=== PATIENT | female | born 1975 ===

== ENCOUNTER 2021-09-20 15:02 | Emergency (ER) | payer BC, SELFPAY ==
[2021-09-20 15:13] VITALS: BP 125/55; PULSE 58; RESP 16; TEMP 36.7; O2SAT 99
--- NOTE | 2021-09-20 15:15 | DI.CT_ITS ---
Exam(s) CT HEAD WO EXAM: CT HEAD WO CLINICAL HISTORY: s/p fall, head injury, r/o fx/bleed. TECHNIQUE: Imaging Protocol: Axial computed tomography images with coronal and sagittal reformatted images were created and reviewed COMPARISON: No exams were available for comparison FINDINGS: There are no skull fractures nor fluid in the visualized paranasal sinuses. Mild mucosal thickening is noted in the partially visualized right maxillary sinus. There is no evidence of intracranial hemorrhage, mass effect, or shift of midline structures. There are no extra-axial fluid collections. The ventricles are not enlarged or shifted and there is no blo od within the ventricular system nor within the basal cisterns. IMPRESSION: No acute intracranial findings on this noninfused CT scan of the brain. Report called to ER provider. RADIATION DOSE DELIVERED: 757.03mGy.cm Total DLP DATA REPOSITORY: All CT scans at this facility are submitted to the National Radiology Data Registry (NRDR) Dose Index Registry (DIR) with the [employer] ([employer]). RADIATION OPTIMIZATION: All CT scans at this facility use at least one of these dose optimization te chniques: automated exposure control; mA and/or kV adjustment per patient size (includes targeted exa ms where dose is matched to clinical indication); or iterative reconstruction.
--- NOTE | 2021-09-20 15:15 | DI.RAD_ITS ---
Exam(s) XR WRIST RT COMPLETE EXAM: XR WRIST RT COMPLETE CLINICAL HISTORY: fall on ice, r/o fx. TECHNIQUE: 2D digital imaging was performed. COMPARISON: No exams were available for comparison FINDINGS: There is a subtle nondisplaced fracture of the distal radius. Best seen on the lateral view. Ulnar styloid is intact as is the scaphoid. No significant ulnar variance. IMPRESSION: Subtle nondisplaced radial fracture DATA REPOSITORY: RADIATION DOSE DELIVERED:
--- NOTE | 2021-09-20 15:25 | ED.GENADUL_ITS ---
Discharge Plan Disposition Patient Disposition: HOME Condition: Stable Discharge Details Clinical Impression: Fracture of right wrist, Closed head injury Primary Care Provider: Unknown,Unknown ED Provider: Falguni Salas Home Meds and New Rx's Prescriptions: Continued warfarin 10 mg Tablet 10 mg PO DAILY 0RF Rx Instructions: 5-10mg Discharge Instructions Additional Instructions: Rest, ice, and elevate the affected area as much as possible. Take Tylenol as needed and directed for pain. Take the oxycodone for pain not relieved with tylenol. Call an orthopedist near home tomorrow to schedule a follow-up appointment for reevaluation within the next week. Follow-up with your primary care doctor as directed for recheck of your INR when indicated. Return immediately to the emergency department if you develop any worsening or new concerning symptoms. Discharge Data Discharge Date/Time-TO BE ENTERED AT DEPARTURE: 09/20/21 17:21 Discharge Physician: Falguni Salas Medical Decision Making 45-year-old female presents with right wrist pain after slip and fall on ice prior to arrival Patient does take warfarin for antiphospholipid syndrome and thinks she may have braced her fall with her wrist and does not thinks she directly hit her head on the ground but states her glasses did hit the ground. She denies LOC, vomiting, headache or neck pain. As the patient is not completely sure if her head had a direct hit, will obtain CT head imaging and she is agreeable. She has no focal deficits on exam. Her right dorsal lateral wrist is mild to moderately edematous with tenderness and limited range of motion due to pain. There is no obvious deformity. Will obtain right wrist x-ray and give a dose of tylenol. CT head negative. X-ray notes distal radius fracture. Volar splint and sling placed. Patient is visiting from [place] and returning in 2 days. She was given imaging disc and report. Advised to call local orthopedics for follow up within the next week. She states she had not checked her INR this week. INR obtained and 3.7. Advised to discuss her warfarin dosing and repeat INR check with her PCP. She was given a 4 tab bottle of oxycodone to go for breakthrough pain. Usual and customary return precautions given prior to discharge. Medical Records Medical records reviewed: Yes I reviewed the patient's medical records. Imaging Data Radiologic Study: Radiologist's impression: XR WRIST RT COMPLETE CLINICAL HISTORY: ? fall on ice, r/o fx. ? TECHNIQUE:? 2D digital imaging was performed. COMPARISON:? No exams were available for comparison FINDINGS: There is a subtle nondisplaced fracture of the distal radius.? Best seen on the lateral view.? Ulnar styloid is intact as is the scaphoid.? No significant ulnar variance. IMPRESSION: Subtle nondisplaced radial fracture CT HEAD WO CLINICAL HISTORY: ? s/p fall, head injury, r/o fx/bleed. ? TECHNIQUE:? Imaging Protocol: Axial computed tomography images with coronal and sagittal reformatted images were created and reviewed COMPARISON:? No exams were available for comparison FINDINGS: ?There are no skull fractures nor fluid in the visualized paranasal sinuses.? Mild mucosal thickening is noted in the partially visualized right maxillary sinus. There is no evidence of intracranial hemorrhage, mass effect, or shift of midline structures.? There are no extra-axial fluid collections.? The ventricles are not enlarged or shifted and there is no blood within the ventricular system nor within the basal cisterns. IMPRESSION: No acute intracranial findings on this noninfused CT scan of the brain. Lab Data Lab results reviewed: Yes I reviewed the patient's lab results. Labs: Laboratory Tests Range/Units 09/20/21 16:40 PT (9.3-11.0) sec 36.1 H INR (0.9-1.1) 3.7 H HPI General Date/Time Provider Initiated Documentation: 09/20/21 15:17 . Limitations to Documentation: no limitations . Information obtained by: patient . HPI Narrative: Patient is a 45-year-old female presents with right wrist pain after slip and fall on ice landing directly on her right wrist. Patient states she does not think she hit her head directly but did brace her fall with her wrist protecting her head and states her glasses did hit the ground. She states she was wearing a helmet and denies any damage to the helmet. She denies any headache, LOC, vomiting or neck pain. She denies any other injuries. She has not taken a medication for pain. Related Data Home Medications Medication Instructions Recorded Confirmed warfarin 10 mg tablet 10 mg PO DAILY 09/20/21 09/20/21 Allergies Allergy/AdvReac Type Severity Reaction Status Date / Time No Known Allergies Allergy Unverified 09/20/21 15:17 General Stated Complaint: Orthopedic FLOWER: 4 Review of Systems All systems reviewed & are unremarkable except as noted in HPI and below Constitutional Constitutional: Reports as per HPI, Denies chills and Denies fever(s) Eyes Eyes: Denies blurry vision ENT Ears, Nose, Mouth, and Throat: Denies dizziness, Denies sore throat and Denies throat swelling Cardiovascular Cardiovascular: Denies chest pain and Denies dyspnea Respiratory Respiratory: Denies cough and Denies dyspnea Gastrointestinal Gastrointestinal: Denies abdominal pain, Denies diarrhea and Denies vomiting Genitourinary Genitourinary: Denies hematuria and Denies dysuria Musculoskeletal Musculoskeletal: Denies back pain and Denies numbness Comments: R wrist pain Integumentary/Breasts Skin/Breast: Denies lesions and Denies rash Neurologic Neurologic: Denies dizziness, Denies localized weakness and Denies numbness Allergic/Immunologic Allergic/Immunologic: Denies throat swelling PFSH All Active Problems (Updated 09/20/21 @ 17:03 by Falguni Salas DO) Fracture of right wrist (Acute) Closed head injury (Acute) Medical History (Updated 09/20/21 @ 17:03 by Falguni Salas DO) Antiphospholipid syndrome Menometrorrhagia Surgical History (Updated 09/20/21 @ 17:03 by Falguni Salas DO) History of hysterectomy Social History Smoking/Tobacco Use Status: Never Smoking risk assessment performed?: Yes Substance use type: does not use Exam Const General: cooperative, healthy appearing and no acute distress Orientation: alert, awake and oriented x3 HENMT Head: normal to inspection, no palpable skull fracture and atraumatic Ears: hearing grossly normal bilaterally, external ears normal and TM's normal bilaterally General nose exam: external nose normal Face and sinus: normal facial exam Mouth: oral mucosae normal Eyes General: appearance normal, both eyes and all related structures Periorbital: periorbital findings normal Conjunctivae: conjunctivae normal Sclera: sclerae normal Pupils: PERRL EOM: EOM intact bilaterally Neck Neck: normal visual inspection Resp Effort & Inspection: normal respiratory effort and able to speak in complete sentences Cardio Rate: regular rate Back/Spine/Pelvis Cervical Spine: No cervical spinal tenderness Skin General skin exam: no rashes or lesions noted Neuro General: patient alert, patient awake, patient oriented x3, gait normal, moves all extremities and no meningeal signs Cranial Nerves: CN's II-XI intact bilaterally Motor: muscle tone normal throughout and strength 5/5 throughout Extrem Hand/finger images: 1. Tenderness, mild to moderate edema. Pain with flexion extension, pronation, supination. No tenderness or evidence of trauma to hand. No obvious deformity. Other: Right radial and ulnar pulse intact. No significant tenderness overlying right radial head or olecranon without evidence of trauma. No tenderness to palpation of right shoulder or upper arm. Psych Appearance: grossly normal Affect: normal affect Course Vital Signs Vital signs: Vital Signs Temperature 98.1 F 09/20/21 15:13 Pulse 58 L 09/20/21 15:13 Respiratory Rate 16 09/20/21 15:13 Blood Pressure 125/55 L 09/20/21 15:13 Pulse Oximetry 99 09/20/21 15:13 Temperature 98.1 F 09/20/21 15:13 Temperature Source Skin 09/20/21 15:13 Pulse 58 L 09/20/21 15:13 Respiratory Rate 16 09/20/21 15:13 Respiratory Effort 09/20/21 15:13 Blood Pressure 125/55 L 09/20/21 15:13 Blood Pressure Position Sitting 09/20/21 15:13 Pulse Oximetry 99 09/20/21 15:13 Oxygen Delivery Method Room Air 09/20/21 15:13 Oxygen Flow Rate 0 09/20/21 15:13 Pain Level 7 09/20/21 15:13 Procedures Orthopedic Splinting/Casting Injury #1: Side: right Upper Extremity Immobilizer: sling/shoulder immobilizer (sling) and volar splint
[2021-09-20] MEDS: Acetaminophen 500 MG TAB 1000 MG PO (15:32)
[2021-09-20 17:07] LABS: INR 3.7 (0.9-1.1); Prothrombin Time 36.1 sec (9.3-11.0)
== END 2021-09-20 17:21 | disposition home or self-care (01) ==
PROVIDERS: Emergency Provider Physician Assistant
DX: S52.591A Other fractures of lower end of right radius, initial encounter for closed fracture (principal); S09.8XXA Other specified injuries of head, initial encounter; W00.0XXA Fall on same level due to ice and snow, initial encounter; D68.61 Antiphospholipid syndrome; Z79.01 Long term (current) use of anticoagulants
CPT/HCPCS: 29125; 99284; 70450; 73110; 85610; 99283